=== PATIENT | male | born 1965 | race Caucasian/White ===

== ENCOUNTER 2024-03-31 20:28 | Inpatient (IN) | payer SELFPAY ==
[2024-03-31] MEDS ORDERED: Ondansetron ODT 4 MG TAB PO PRN (22:38)
[2024-03-31] MEDS ORDERED: Acetaminophen 650 MG Suppository PR PRN (22:38)
[2024-03-31] MEDS ORDERED: Ondansetron PF 4 MG/2 ML Vial IVP PRN (22:38)
[2024-03-31 23:07] VITALS: BMI 23.7
[2024-03-31] MEDS: Ketorolac Tromethamine 30 MG (1 mL) VIAL IVP PRN (23:21)
[2024-03-31] MEDS: Acetaminophen 325 MG TAB PO PRN (23:21)
[2024-04-01 00:04] LABS: #Basophils Less than 0.03 10x3/uL (0.0-0.2); %Basophils 0.2 % (0.0-1.0); %Eosinophils 0.3 % (0.0-10.0); %Lymphocytes 8.7 % (21.0-51.0); %Monocytes 6.8 % (0.0-10.0); %Neutrophils 83.1 % (42.0-75.0); Hematocrit 44.8 % (42.0-52.0); Hemoglobin 14.3 g/dL (14.0-18.0); Mean Corpuscular HGB CONC 31.9 g/dL (32.0-36.0); Mean Corpuscular Hemoglobin 27.3 pg (27.0-31.0); Mean Corpuscular Volume 85.7 fL (78.0-98.0); Mean Platelet Volume 10.3 fL (7.4-10.4); Platelet Count 315 10x3/uL (130-400); Red Blood Cell (RBC) Count 5.23 mill/uL (4.70-6.10)
[2024-04-01 00:46] LABS: ALT (SGPT) 46 U/L (8-55); AST (SGOT) 41 U/L (5-34); Albumin 2.9 g/dL (3.5-5.0); Alkaline Phosphatase 373 U/L (40-110); Anion Gap 22 mmol/L (10-20); BUN (Urea Nitrogen) 62 mg/dL (8.4-25.7); Bilirubin, Total 1.1 mg/dL (0.2-1.2); Calc. Creatinine Clearance 49 mL/min (70-130); Calcium 13.9 mg/dL (7.8-10.44); Carbon Dioxide 21 mmol/L (22-29); Chloride 97 mmol/L (98-107); Estimated GFR 42; Globulin 4.8 g/dL (2.4-3.5); Glucose 98 mg/dL (70-105); Potassium 4.7 mmol/L (3.5-5.1); Protein, Total 7.7 g/dL (6.0-8.3); Sodium 135 mmol/L (136-145)
[2024-04-01 02:33] LABS: Troponin I 0.146 ng/mL (< 0.028)
[2024-04-01] MEDS: Sodium Chloride 0.9% 1,000 ML IV SCH (02:40)
[2024-04-01] MEDS: Calcitonin,Salmon,Synthetic 400 UNITS/2 ML SC SCH (03:38)
[2024-04-01 04:12] LABS: Lactic Acid 1.6 mmol/L (0.5-2.2)
[2024-04-01] MEDS: Zoledronic Acid 4 MG in Sodium Chloride 0.9% 100 ML IVPB SCH ×2 (05:10→05:11)
[2024-04-01] MEDS ORDERED: Zoledronic Acid 4 MG in Sodium Chloride 0.9% 100 ML IVPB SCH (09:00)
[2024-04-01] MEDS: Senokot S 8.6-50 MG TAB PO SCH (09:57)
[2024-04-01] MEDS: Cefepime 1 GM in Sodium Chloride 0.9% 100 ML IVPB SCH (09:57)
[2024-04-01] MEDS: Famotidine/PF 20 mg/2ml Vial SLOW IVP SCH (09:58)
[2024-04-01] MEDS: Famotidine 20 MG TAB PO SCH (09:58)
[2024-04-01] MEDS: Ipratropium/Albuterol 3 ML NEB NEB SCH ×2 (10:40→14:18)
[2024-04-01] MEDS ORDERED: Sodium Chloride 0.9% 1,000 ML IV SCH (12:30)
[2024-04-02] MEDS: HYDROcodone/Acetaminophen 5/325 mg Tablet PO PRN (09:18)
[2024-04-02] MEDS: Morphine 2 MG/ML VIAL SLOW IVP PRN (19:54)
[2024-04-04] MEDS: Morphine 2 MG/ML VIAL SLOW IVP PRN (11:14)
[2024-04-05] MEDS: Senokot S 8.6-50 MG TAB PO SCH ×2 (11:48→20:24)
[2024-04-06] MEDS ORDERED: Ipratropium/Albuterol 3 ML NEB NEB PRN (09:52)
[2024-04-06] MEDS: Melatonin 3 MG TAB PO SCH (20:43)
[2024-04-06] MEDS: Senokot S 8.6-50 MG TAB PO SCH (20:43)
[2024-04-07] MEDS: Acetaminophen/Codeine 30-300mg Tablet PO PRN (02:37)
[2024-04-07] MEDS: Clopidogrel Bisulfate 75 MG TAB PO SCH (08:56)
[2024-04-07] MEDS: Aspirin 81 mg Enteric Coated Tablet PO SCH (08:56)
[2024-04-07 12:08] VITALS: BMI 23.7
[2024-04-07] MEDS: Ipratropium/Albuterol 3 ML NEB NEB SCH (16:01)
[2024-04-09 09:46] VITALS: BP 131/76; TEMP 98.5
== END 2024-04-09 10:59 | disposition home or self-care (01) | DRG 542 ==
LOC: 2NO 20:46 → MSONC 04-04 17:40
PROVIDERS: ADMIT Family Medicine; ATTEND Internal Medicine
DX: M84.552A Pathological fracture in neoplastic disease, left femur, initial encounter for fracture (principal); I21.A1 Myocardial infarction type 2; J18.0 Bronchopneumonia, unspecified organism; J96.01 Acute respiratory failure with hypoxia; C25.9 Malignant neoplasm of pancreas, unspecified; C79.51 Secondary malignant neoplasm of bone; C78.7 Secondary malignant neoplasm of liver and intrahepatic bile duct; R64 Cachexia; E87.1 Hypo-osmolality and hyponatremia; E87.20 Acidosis, unspecified; N17.9 Acute kidney failure, unspecified; I50.9 Heart failure, unspecified; I11.0 Hypertensive heart disease with heart failure; Z87.891 Personal history of nicotine dependence; E83.52 Hypercalcemia; Z51.5 Encounter for palliative care; D64.9 Anemia, unspecified; I25.10 Atherosclerotic heart disease of native coronary artery without angina pectoris; E86.0 Dehydration; Z66 Do not resuscitate; Z79.82 Long term (current) use of aspirin; Z79.899 Other long term (current) drug therapy
CPT/HCPCS: 36415; 82010; 82310; 83605; 83880; 84484; 93306; 94640; 94760; J0630; J0692; J1885; J2272; J3489; J3490; J7050; J7620; S0028